=== PATIENT | female | born 1970 | race Caucasian/White ===

== ENCOUNTER 2018-02-21 18:01 | Emergency (ER) | payer OTHER ==
[2018-02-21 18:09] VITALS: BP 141/77; PULSE 86; RESP 20; TEMP 98.5
[2018-02-21] MEDS ORDERED: MORPHINE SULFATE 2 MG/ML SYRINGE IM STA (18:18)
--- NOTE | 2018-02-21 18:49 | ED ---
Extremity Problem HPI - General Chief complaint: Extremity Problem,Nontraumatic Stated complaint: left knee pain Time Seen by Provider: 02/21/18 18:10 Source: patient Mode of arrival: ambulatory Limitations: no limitations - History of Present Illness Initial comments: 47-year-old female patient presents emergency department today for complaints of left knee pain and swelling. Patient has a past medical history significant for rheumatoid arthritis. States that she did talk to her stained glass painter and because she was having right hand pain and swelling and left knee pain and swelling he started her on a tapered dose of prednisone. Patient states that her hand symptoms have improved however the knee has not. States that she is having severe sharp stabbing pains in the knee that radiates up into her thigh and down to her lower leg. She denies any calf pain or tenderness. States that she did take and [place] at home without relief of symptoms. She denies any redness to the joint. Denies any fevers or chills. Denies any known injury. Patient denies any recent rash, fever, chills, shortness breath, chest pain, abdominal pain, nausea, vomiting, diarrhea, constipation, back pain, numbness, tingling, dizziness, weakness, hematuria, dysuria, urinary urgency, urinary frequency, headache, visual changes, or any other complaints. - Related Data Previous Rx's Medication Instructions Recorded Hydrocodone/Acetaminophen [[place] 1 tab PO Q6HR PRN #12 tab 02/21/18 5-325] Allergies Allergy/AdvReac Type Severity Reaction Status Date / Time amoxicillin [From Augmentin] Allergy Nausea & Verified 02/21/18 18:07 Vomiting clavulanic acid Allergy Nausea & Verified 02/21/18 18:07 [From Augmentin] Vomiting erythromycin base Allergy Nausea & Verified 02/21/18 18:07 [From E-Mycin] Vomiting Review of Systems ROS Statement: Those systems with pertinent positive or pertinent negative responses have been documented in the HPI. ROS Other: All systems not noted in ROS Statement are negative. Past Medical History Past Medical History: Asthma, Rheumatoid Arthritis (RA) History of Any Multi-Drug Resistant Organisms: None Reported Past Surgical History: Bariatric Surgery Additional Past Surgical History / Comment(s): lt ovary,sinus Past Psychological History: Depression Smoking Status: Never smoker Past Alcohol Use History: Occasional Past Drug Use History: None Reported General Exam Limitations: no limitations General appearance: alert, in no apparent distress, other (This is a well- developed, well-nourished adult female patient in no acute distress. Vital signs upon presentation are temperature 98.5F, pulse 86, respirations 20, blood pressure 141/77, pulse ox 99% on room air.) Eye exam: Present: normal appearance, PERRL, EOMI. Absent: scleral icterus, conjunctival injection, periorbital swelling ENT exam: Present: normal exam, normal oropharynx, mucous membranes moist Respiratory exam: Present: normal lung sounds bilaterally. Absent: respiratory distress, wheezes, rales, rhonchi, stridor Cardiovascular Exam: Present: regular rate, normal rhythm, normal heart sounds. Absent: systolic murmur, diastolic murmur, rubs, gallop, clicks Extremities exam: Present: full ROM, tenderness (Left knee), normal capillary refill, joint swelling (Left knee swelling), other (Skin to the left lower extremity is pink, warm, and dry. Cap refills less than 3 seconds. Posttibial pulses are 2+ and equal bilaterally. Left knee joint is swollen. There is no erythema, skin is uniform and temperature. No evidence of infection.). Absent : normal inspection, pedal edema, calf tenderness Neurological exam: Present: alert, oriented X3, CN II-XII intact Psychiatric exam: Present: normal affect, normal mood Skin exam: Present: warm, dry, intact, normal color. Absent: rash Course Vital Signs 02/21/18 18:04 Temperature 98.5 F Pulse Rate 86 Respiratory 20 Rate Blood Pressure 141/77 O2 Sat by Pulse 99 Oximetry Medical Decision Making - Medical Decision Making 47 old female patient presents to the emergency department today for evaluation of left knee pain and swelling. Physical examination did reveal swollen left knee joint. Patient does have full range of motion however with pain. Distal pulses are intact. Neurovascular status is intact. X-ray was obtained and showed a small joint effusion but no other acute process. Patient's knee was not erythematous, not hot to touch. It is felt that this is related to an exacerbation of her rheumatoid arthritis. She is taking a prednisone taper from her stained glass painter at this time. She'll be given a prescription for pain management. She is instructed to follow-up with her orthopedic physician or her stained glass painter for recheck in 1-2 days. Return parameters discussed in detail. She verbalizes understanding and agrees with this plan. - Radiology Data Radiology results: report reviewed, image reviewed 3 views of the left knee are obtained. There is spurring of the femoral and tibial condyles. There is slight narrowing of the medial joint space. There is spurring on the patella. There is probably small knee joint effusion. I see no fracture nor dislocation. Impression by Dr. Macedo shows osteoarthritic changes and small knee joint effusion. No fracture. Disposition Clinical Impression: Effusion, left knee Disposition: HOME SELF-CARE Condition: Good Instructions: Swollen Knee Joint (ED) Additional Instructions: Rest and elevate the left knee. Take medications as directed. Follow-up with your orthopedic physician or stained glass painter as soon as possible. Return here immediately for any new, worsening, or concerning symptoms. Prescriptions: Hydrocodone/Acetaminophen [[place] 5-325] 1 tab PO Q6HR PRN #12 tab PRN Reason: Pain Is patient prescribed a controlled substance at d/c from ED?: Yes When asked, does pt state using other controlled substances?: No If prescribed controlled substance>3 days was MAPS reviewed?: Prescribed <3 Days If opioid is for acute pain is fill amount 7 days or less?: Yes If Rx opioid, was Start Talking consent form obtained?: Yes Referrals: None,Stated [Primary Care Provider] - 1-2 days Time of Disposition: 19:14
--- NOTE | 2018-02-21 18:55 | XR ---
EXAMINATION TYPE: XR knee complete LT DATE OF EXAM: 02/21/2018 COMPARISON: None HISTORY: Pain and swelling TECHNIQUE: 3 views FINDINGS: There is spurring of the femoral and tibial condyles. There is slight narrowing of the medi al joint space. There is spurring on the patella. There is probably small knee joint effusion. I see no fracture nor dislocation. IMPRESSION: Osteoarthritic changes and small knee joint effusion. No fracture.
== END 2018-02-21 19:19 | disposition home or self-care (01) ==
LOC: EC 18:01
DX: M25.462 Effusion, left knee (principal); M17.12 Unilateral primary osteoarthritis, left knee; M06.9 Rheumatoid arthritis, unspecified; J45.909 Unspecified asthma, uncomplicated; Z79.52 Long term (current) use of systemic steroids; Z88.0 Allergy status to penicillin; Z88.1 Allergy status to other antibiotic agents
CPT/HCPCS: 73562; 99283; 96372; J2270